=== PATIENT | female | born 1990 | race Asian ===

== ENCOUNTER 2021-02-12 16:36 | Emergency (ER) | payer OTHER ==
[2021-02-12 17:30] VITALS: BMI 25.4
[2021-02-12] MEDS ORDERED: LACTATED RINGERS SOLUTION 1000 ML INFUS.BAG IV ONE ×2 (18:15→19:30)
[2021-02-12 18:45] LABS: BASO % 0.3 % (0-2.0); EOS % 0.3 % (0-4.5); HEMATOCRIT 31.4 % (32.4-45.2); HEMOGLOBIN 10.8 GM/dL (10.7-15.3); MCH 34.1 pg (25.7-33.7); MCHC 34.4 g/dl (32.0-36.0); MEAN CELL VOLUME 99.1 fl (80-96); MEAN PLT VOLUME 7.2 fl (7.5-11.1); MONO % 12.7 % (3.8-10.2); NEUT % 75.7 % (42.8-82.8); PLATELET COUNT 224 10^3/uL (134-434); RBC 3.17 M/mm3 (3.60-5.2); RDW 12.8 % (11.6-15.6); WHITE BLOOD COUNT 8.2 K/mm3 (4.0-10.0)
[2021-02-12 19:15] LABS: CALCIUM 8.4 mg/dL (8.5-10.1)
[2021-02-12 19:16] LABS: ALBUMIN 2.9 g/dl (3.4-5.0); BLOOD UREA NITROGEN 6.8 mg/dL (7-18)
[2021-02-12 19:19] LABS: CREATININE 0.6 mg/dL (0.55-1.3)
[2021-02-12 19:21] LABS: BILIRUBIN,TOTAL 0.6 mg/dL (0.2-1); TOT PROT 6.7 g/dl (6.4-8.2)
[2021-02-12 19:23] LABS: URINE APPEARANCE CLEAR; URINE BILIRUBIN NEGATIVE (NEGATIVE); URINE COLOR DK YELLOW; URINE GLUCOSE (UA) NEGATIVE (NEGATIVE); URINE KETONE 1+ (NEGATIVE); URINE LEUK ESTERASE NEGATIVE (NEGATIVE); URINE NITRITE NEGATIVE (NEGATIVE); URINE PROTEIN NEGATIVE (NEGATIVE)
[2021-02-12 20:31] VITALS: BP 98/36; PULSE 94; TEMP 98
== END 2021-02-12 20:49 | disposition home or self-care (01) ==
LOC: JER 16:36
DX: O21.0 Mild hyperemesis gravidarum (principal); Z3A.28 28 weeks gestation of pregnancy
CPT/HCPCS: 36415; 80053; 81003; 85025; 86850; 86900; 86901; 87086; 99284-25

== ENCOUNTER 2021-03-11 15:28 | Emergency (ER) | payer OTHER ==
[2021-03-11 15:39] VITALS: TEMP 98.4; BMI 26.4
[2021-03-11] MEDS ORDERED: SODIUM CHLORIDE 1,000 ML IV STA (16:01)
[2021-03-11 17:07] LABS: BASO % 0.7 % (0-2.0); EOS % 0.2 % (0-4.5); HEMATOCRIT 33.6 % (32.4-45.2); HEMOGLOBIN 11.4 GM/dL (10.7-15.3); MCH 33.4 pg (25.7-33.7); MCHC 33.9 g/dl (32.0-36.0); MEAN CELL VOLUME 98.5 fl (80-96); MEAN PLT VOLUME 7.5 fl (7.5-11.1); NEUT % 62.1 % (42.8-82.8); PLATELET COUNT 176 10^3/uL (134-434); RBC 3.41 M/mm3 (3.60-5.2); RDW 12.9 % (11.6-15.6)
[2021-03-11 17:13] LABS: EPI CELLS 17 /uL (0-25.1); HYALINE CASTS 0 /uL (0-3.1); URINE APPEARANCE CLEAR; URINE BACTERIA 286 /uL (0-1359); URINE BILIRUBIN NEGATIVE (NEGATIVE); URINE COLOR YELLOW; URINE GLUCOSE (UA) NEGATIVE (NEGATIVE); URINE KETONE NEGATIVE (NEGATIVE); URINE LEUK ESTERASE TRACE (NEGATIVE); URINE NITRITE NEGATIVE (NEGATIVE); URINE PROTEIN NEGATIVE (NEGATIVE); URINE RBC 4 /uL (0-23.9); URINE WBC 15 /uL (0-25.8)
[2021-03-11 17:28] LABS: CALCIUM 8.2 mg/dL (8.5-10.1)
[2021-03-11 17:29] LABS: ALBUMIN 2.8 g/dl (3.4-5.0); BLOOD UREA NITROGEN 6.2 mg/dL (7-18)
[2021-03-11 17:32] LABS: CREATININE 0.7 mg/dL (0.55-1.3)
[2021-03-11 17:34] LABS: BILIRUBIN,TOTAL 0.6 mg/dL (0.2-1)
[2021-03-11 19:54] VITALS: BP 90/50; PULSE 86
== END 2021-03-11 21:07 | disposition home or self-care (01) ==
LOC: JER 15:28
PROC: 3E0337Z Introduction of Electrolytic and Water Balance Substance into Peripheral Vein, Percutaneous Approach (ICD-10-PCS; principal; 2021-03-11)
DX: B34.9 Viral infection, unspecified (principal)
CPT/HCPCS: 36415; 80053; 81003; 85025; 87086; 99284-25; C9803; U0003; U0005

== ENCOUNTER 2021-03-15 04:50 | Inpatient (IN) | payer OTHER ==
[~2021-03-15 04:50] MED LIST: ELECTROLYTE-148 SOLN 1,000 ML IV SCH
[2021-03-15] MEDS ORDERED: OXYTOCIN 20 UNITS in 0.9% NS 20 UNIT/1,000 ML INFUS.BAG IV ONE (05:12)
[2021-03-15] MEDS: ACETAMINOPHEN 325 MG TABLET (FP) PO PRN ×2 (05:45→22:13)
[2021-03-15] MEDS ORDERED: ACETAMINOPHEN 325 MG TABLET (FP) ONE (05:51)
[2021-03-15] MEDS ORDERED: METHYLERGONOVINE MALEATE 0.2 MG/1 ML AMP IM PRN (06:13)
[2021-03-15] MEDS ORDERED: WITCH HAZEL 50% (TUCKS) 40 PAD/JAR PAD TP PRN (06:13)
[2021-03-15] MEDS ORDERED: BENZOCAINE 20% 57 GM BOTTLE TP PRN (06:13)
[2021-03-15] MEDS ORDERED: BISACODYL 10 MG SUPP.RECT RC PRN (06:13)
[2021-03-15] MEDS ORDERED: BENZOCAINE 28 GM HEMORRHOIDAL OINTMENT TP PRN (06:13)
[2021-03-15] MEDS ORDERED: OXYTOCIN 20 UNITS in 0.9% NS 20 UNIT/1,000 ML INFUS.BAG IV SCH (06:15)
[2021-03-15 06:24] LABS: HEMATOCRIT 38.2 % (32.4-45.2); HEMOGLOBIN 12.9 GM/dL (10.7-15.3); MCH 33.5 pg (25.7-33.7); MCHC 33.7 g/dl (32.0-36.0); MEAN CELL VOLUME 99.5 fl (80-96); MEAN PLT VOLUME 8.7 fl (7.5-11.1); PLATELET COUNT 177 10^3/uL (134-434); RBC 3.84 M/mm3 (3.60-5.2); RDW 12.9 % (11.6-15.6); WHITE BLOOD COUNT 6.1 K/mm3 (4.0-10.0)
[2021-03-15 06:32] LABS: PROTHROMBIN TIME (PATIENT) 12.1 SEC (9.7-13.0)
[2021-03-15 06:35] LABS: ACTIVATED PTT 34.8 SECONDS (25.2-36.5)
[2021-03-15 06:54] LABS: ALBUMIN 2.6 g/dl (3.4-5.0); BLOOD UREA NITROGEN 8.8 mg/dL (7-18); CALCIUM 7.9 mg/dL (8.5-10.1)
[2021-03-15 06:57] LABS: CREATININE 0.9 mg/dL (0.55-1.3)
[2021-03-15 06:59] LABS: BILIRUBIN,TOTAL 5.3 mg/dL (0.2-1); TOT PROT 6.4 g/dl (6.4-8.2)
[2021-03-15 07:20] VITALS: BMI 25.7
[2021-03-15 08:40] LABS: ANISOCYTOSIS 1+; MACROCYTOSIS 1+; OVALOCYTE 1+; PLATELET ESTIMATE NORMAL
[2021-03-15] MEDS: FERROUS SO4 325 MG TABLET (FP) PO SCH ×2 (09:06→17:51)
[2021-03-15] MEDS: PRENATAL VITAMINS W/ FOLIC ACID TABLET (FP) PO SCH (09:08)
[2021-03-15 10:03] LABS: SYPHILIS W/ RPR CONF NON-REACTIVE (NONREACTIVE)
[2021-03-15 10:22] LABS: EPI CELLS 2 /uL (0-25.1); HYALINE CASTS 0 /uL (0-3.1); URINE APPEARANCE CLEAR; URINE BACTERIA 4 /uL (0-1359); URINE BILIRUBIN NEGATIVE (NEGATIVE); URINE COLOR DK YELLOW; URINE GLUCOSE (UA) NEGATIVE (NEGATIVE); URINE KETONE 1+ (NEGATIVE); URINE LEUK ESTERASE NEGATIVE (NEGATIVE); URINE NITRITE NEGATIVE (NEGATIVE); URINE PROTEIN NEGATIVE (NEGATIVE); URINE RBC 358 /uL (0-23.9); URINE UROBILINOGEN 0.2 mg/dL (0.2-1.0); URINE WBC 7 /uL (0-25.8)
[2021-03-15 10:31] LABS: HIV INTERPRETATION NEGATIVE (NEGATIVE)
[2021-03-15 11:02] LABS: COCAINE, UR NEGATIVE (NEGATIVE); URINE BARBITURATES NEGATIVE (NEGATIVE); URINE BENZODIAZEPINES NEGATIVE (NEGATIVE)
[2021-03-15 11:03] LABS: METHADONE, UR NEGATIVE (NEGATIVE); OPIATES, URI NEGATIVE (NEGATIVE); PHENCYCLIDINE,URINE NEGATIVE (NEGATIVE)
[2021-03-15 11:13] LABS: URINE AMPHETAMINES NEGATIVE (NEGATIVE)
[2021-03-15] MEDS: IBUPROFEN 600 MG TABLET (FP) PO PRN (11:54)
[2021-03-15] MEDS ORDERED: LACTATED RINGERS SOLUTION 1,000 ML/1,000 ML INFUS.BAG IV SCH (12:30)
[2021-03-15 18:50] LABS: BASO % 0.2 % (0-2.0); EOS % 0.1 % (0-4.5); HEMATOCRIT 34.9 % (32.4-45.2); HEMOGLOBIN 11.7 GM/dL (10.7-15.3); LYMPH % 21.2 % (8-40); MCH 33.1 pg (25.7-33.7); MCHC 33.5 g/dl (32.0-36.0); MEAN CELL VOLUME 98.7 fl (80-96); MEAN PLT VOLUME 8.7 fl (7.5-11.1); MONO % 8.7 % (3.8-10.2); NEUT % 69.8 % (42.8-82.8); PLATELET COUNT 161 10^3/uL (134-434); RBC 3.53 M/mm3 (3.60-5.2); RDW 13.2 % (11.6-15.6); WHITE BLOOD COUNT 7.4 K/mm3 (4.0-10.0)
[2021-03-15 19:11] LABS: ALBUMIN 2.1 g/dl (3.4-5.0); BLOOD UREA NITROGEN 7.6 mg/dL (7-18); CALCIUM 8.3 mg/dL (8.5-10.1)
[2021-03-15 19:14] LABS: CREATININE 0.8 mg/dL (0.55-1.3)
[2021-03-15 19:16] LABS: BILIRUBIN,TOTAL 4.8 mg/dL (0.2-1); TOT PROT 5.4 g/dl (6.4-8.2)
[2021-03-16] MEDS: IBUPROFEN 600 MG TABLET (FP) PO PRN (01:37)
[2021-03-16] MEDS: FERROUS SO4 325 MG TABLET (FP) PO SCH (09:42)
[2021-03-16] MEDS: PRENATAL VITAMINS W/ FOLIC ACID TABLET (FP) PO SCH (09:42)
[2021-03-16 10:14] LABS: BASO % 0.2 % (0-2.0); EOS % 0.9 % (0-4.5); HEMATOCRIT 37.9 % (32.4-45.2); HEMOGLOBIN 12.9 GM/dL (10.7-15.3); LYMPH % 27.7 % (8-40); MCH 33.6 pg (25.7-33.7); MCHC 34.1 g/dl (32.0-36.0); MEAN CELL VOLUME 98.6 fl (80-96); MEAN PLT VOLUME 9.1 fl (7.5-11.1); MONO % 12.3 % (3.8-10.2); NEUT % 58.9 % (42.8-82.8); PLATELET COUNT 210 10^3/uL (134-434); RBC 3.84 M/mm3 (3.60-5.2); RDW 13.4 % (11.6-15.6); WHITE BLOOD COUNT 8.8 K/mm3 (4.0-10.0)
[2021-03-16 10:30] LABS: CALCIUM 8.3 mg/dL (8.5-10.1)
[2021-03-16 10:31] LABS: BLOOD UREA NITROGEN 7.7 mg/dL (7-18)
[2021-03-16 10:34] LABS: CREATININE 0.8 mg/dL (0.55-1.3)
[2021-03-16 10:35] LABS: BILIRUBIN,TOTAL 3.4 mg/dL (0.2-1); TOT PROT 5.4 g/dl (6.4-8.2)
[2021-03-16 10:51] VITALS: BP 88/58; PULSE 65; TEMP 97.9
[2021-03-16 10:56] LABS: INR 0.91 (0.83-1.09)
[2021-03-16] MEDS ORDERED: SENNOSIDES/DOCUSATE COMBO (SENNA PLUS) TABLET (UD) PO PRN (22:00)
== END 2021-03-16 13:00 | disposition home or self-care (01) | DRG 560 ==
LOC: JLDR 04:50 → J3W 08:30
PROVIDERS: ADMIT Obstetrics & Gynecology; ATTEND Obstetrics & Gynecology
DX: O60.14X0 Preterm labor third trimester with preterm delivery third trimester, not applicable or unspecified (principal); Z37.0 Single live birth; O98.52 Other viral diseases complicating childbirth; U07.1 COVID-19; O62.3 Precipitate labor; O26.62 Liver and biliary tract disorders in childbirth; R94.5 Abnormal results of liver function studies; Z3A.35 35 weeks gestation of pregnancy
CPT/HCPCS: 36415; 59409; 76705-TC; 80053; 80307; 81003; 82550; 83010; 83516; 83540; 83550; 83615; 83690; 85025; 85045; 85384; 85610; 85730; 86038; 86140; 86704; 86705; 86709; 86762; 86780; 86803; 86850; 86900; 86901; 87340; 87389; C9803; U0003; U0005